=== PATIENT | female | born 1990 | race Caucasian/White ===

== ENCOUNTER 2017-01-26 09:59 | Emergency (ER) | payer MEDICAID ==
[~2017-01-26] VITALS: Ht 172.7 cm; Wt 80.0 kg
[2017-01-26 10:06] VITALS: BP 132/78; PULSE 100; RESP 20; TEMP 98.9; O2SAT 100
[2017-01-26 10:13] VITALS: BP 132/78; PULSE 74; RESP 18; O2SAT 98
[2017-01-26] MEDS ORDERED: LIDOCAINE 2%/EPINEPHrine 1:100,000 30ML MDV INFIL ONE (10:15)
[2017-01-26] MEDS ORDERED: IBUP800T23 PO (10:18)
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
== END 2017-01-26 11:19 | disposition home or self-care (01) ==
LOC: EDBD → NEPD 09:59
DX: S51.812A Laceration without foreign body of left forearm, initial encounter (principal); W25.XXXA Contact with sharp glass, initial encounter; Y92.009 Unspecified place in unspecified non-institutional (private) residence as the place of occurrence of the external cause; Z72.0 Tobacco use
CPT/HCPCS: 12002

== ENCOUNTER 2017-02-01 20:29 | Emergency (ER) | payer MEDICAID ==
[~2017-02-01 20:29] MED LIST: IBUP800T23 PO
[2017-02-01 20:30] VITALS: BP 118/76; PULSE 68; RESP 16; TEMP 98.8; O2SAT 98
--- NOTE | 2017-02-01 21:08 | PD ---
HPI Chief Complaint: Wound/Suture/Staple Re-Check Time Seen by Provider: 21:08 Travel History International Travel<30 days: No Contact w/Intl Traveler<30days: No Traveled to known affect area: No PFSH Past Medical History Medical History: Denies Significant Hx Anxiety: Yes Diabetes: No Diminished Hearing: No Tetanus Vaccination: < 5 Years ?: Not Past Surgical History Section: Yes Social History Alcohol Use: No Tobacco Use: Yes (1PPD) Substance Use: No Allergies-Medications (Allergen,Severity, Reaction): Coded Allergies: No Known Allergies (Unverified , 02/01/17) Reported Meds & Prescriptions Reported Meds & Active Scripts Active No Active Prescriptions or Reported Medications Data Data Last Documented VS Vital Signs Date Time Temp Pulse Resp B/P Pulse Ox O2 Delivery O2 Flow Rate FiO2 02/01/17 20:30 98.8 68 16 118/76 98 Room Air MDM Scripts No Active Prescriptions or Reported Meds Josephine Oliveros February 01, 2017 21:08
--- NOTE | 2017-02-01 21:13 | PD ---
HPI Chief Complaint: Wound/Suture/Staple Re-Check Time Seen by Provider: 21:13 Travel History International Travel<30 days: No Contact w/Intl Traveler<30days: No Traveled to known affect area: No History of Present Illness HPI 26 year-old female presents to emergency department requesting suture removal laceration left forearm sustained 7 days ago. Patient states she was instructed to keep the sutures in 7-10 days but she would like them out today if possible. Denies any fever or chills. Denies any pain. States that the area itches sometimes. Has no other symptoms to report. History Past Medical Histgory Medical History: Denies Significant Hx Tetanus Vaccination: < 5 Years Social History Alcohol Use: No Tobacco Use: Yes (1PPD) Allergies-Medications (Allergen,Severity, Reaction): Coded Allergies: No Known Allergies (Unverified , 02/01/17) Reported Meds & Prescriptions Reported Meds & Active Scripts Active No Active Prescriptions or Reported Medications Review of Systems Except as stated in HPI: all other systems reviewed are Neg Physical Exam Narrative GENERAL: Well-nourished, well-developed female patient ambulatory no acute distress SKIN: Focused skin assessment warm/dry. 6 cm laceration on the anterior aspect of the left wrist. Sutures are intact. No erythema or edema. No drainage. HEAD: Normocephalic. EYES: No scleral icterus. No injection or drainage. NECK: Supple, trachea midline. No JVD or lymphadenopathy. CARDIOVASCULAR: Regular rate and rhythm without murmurs, gallops, or rubs. RESPIRATORY: Breath sounds equal bilaterally. No accessory muscle use. GASTROINTESTINAL: Abdomen soft, non-tender, nondistended. MUSCULOSKELETAL: No cyanosis, or edema. 5 Plus vessel slagman strength equal bilateral upper extremities. Distal pulses are palpable. Sensation intact distal extremities. BACK: Nontender without obvious deformity. No CVA tenderness. Data Data Last Documented VS Vital Signs Date Time Temp Pulse Resp B/P Pulse Ox O2 Delivery O2 Flow Rate FiO2 02/01/17 20:30 98.8 68 16 118/76 98 Room Air MDM Medical Screen Exam Complete: Yes Emergency Medical Condition: No Differential Diagnosis Left forearm laceration, request for suture removal Narrative Course 26 year-old female presents to the emergency department for suture removal. Patient appears without distress. I did remove 2 sutures however the wound began to dehisce. Steri-Strips are placed over this area and I encouraged the patient to return in 3-5 days at which time sutures can be removed. She agrees with this plan of care. At this time there are no urgent or emergent needs medical intervention identified. A medical screening exam was performed: At the time of evaluation the presenting medical condition was determined not to be of an emergent nature. The patient was given the option of receiving additional care, but declined. Patient was given options for additional community resources from which to obtain care. The Patient Has Been advised to seek medical attention for their presenting complaint. The patient has been advised to return to the ER at any time if an emergent condition develops. Primary Impression: Laceration of forearm Qualified Code: S51.812D - Laceration of forearm, left, subsequent encounter Scripts No Active Prescriptions or Reported Meds Condition: Josephine Galan February 01, 2017 21:13
== END 2017-02-01 21:31 | disposition left against medical advice (07) ==
LOC: NEPK 20:29
DX: S51.812D Laceration without foreign body of left forearm, subsequent encounter (principal); X58.XXXD Exposure to other specified factors, subsequent encounter; Z48.02 Encounter for removal of sutures
CPT/HCPCS: 99281

== ENCOUNTER 2017-02-04 14:28 | Emergency (ER) | payer MEDICAID ==
[~2017-02-04] VITALS: Ht 167.6 cm; Wt 80.0 kg
[2017-02-04 14:29] VITALS: BP 131/87; PULSE 74; RESP 18; TEMP 99; O2SAT 95
--- NOTE | 2017-02-04 14:39 | PD ---
Physical Exam Date Seen by Provider: February 04, 2017 Time Seen by Provider: 14:38 Narrative 26 year old female presents to the emergency department for suture removal to her left forearm. No complaints. Vital signs reviewed. Patient awaiting bed placement. Data Data Last Documented VS Vital Signs Date Time Temp Pulse Resp B/P Pulse Ox O2 Delivery O2 Flow Rate FiO2 02/04/17 14:29 99.0 74 18 131/87 95 MDM Supervised Visit with SIDNEY: No Scripts No Active Prescriptions or Reported Meds Shannan Chavis February 04, 2017 14:39
--- NOTE | 2017-02-04 14:57 | PD ---
HPI Chief Complaint: Wound/Suture/Staple Re-Check Time Seen by Provider: 14:55 Travel History International Travel<30 days: No Contact w/Intl Traveler<30days: No Traveled to known affect area: No History of Present Illness HPI 26-year-old female presents to the emergency department requesting suture removal from a laceration to her left forearm. Sutures been in place for 10 days now. She states that she came in 2 days ago and they attempted to remove the sutures and told her to come back because it wasn't ready. Denies paresthesias, loss of sensation, decreased range of motion, decreased strength to the affected extremity. Denies fever, vomiting. Has no other medical. No known allergies. No other modifying factors or associated signs and symptoms. PFSH Past Medical History Anxiety: Yes Diabetes: No Diminished Hearing: No Past Surgical History Section: Yes Social History Alcohol Use: No Tobacco Use: Yes (1PPD) Substance Use: No Allergies-Medications (Allergen,Severity, Reaction): Coded Allergies: No Known Allergies (Unverified , 02/01/17) Reported Meds & Prescriptions Reported Meds & Active Scripts Active No Active Prescriptions or Reported Medications Review of Systems Except as stated in HPI: all other systems reviewed are Neg Physical Exam Narrative GENERAL: Well-nourished, well-developed female patient, in no acute distress SKIN: Warm and dry. Laceration to left forearm that is well approximated with sutures intact; without erythema, edema, drainage. Left upper extremity supple and non-tense with 2+ radial pulses and sensory intact without erythema or edema. HEAD: Atraumatic. Normocephalic. EYES: Pupils equal and round. No scleral icterus. No injection or drainage. ENT: Mucosa pink and moist. Airway patent. NECK: Trachea midline. CARDIOVASCULAR: Regular rate. RESPIRATORY: No accessory muscle use. GASTROINTESTINAL: Obese. MUSCULOSKELETAL: No obvious deformities. No clubbing. No cyanosis. No edema. NEUROLOGICAL: Awake and alert. Oriented 3. No obvious cranial nerve deficits. Motor grossly within normal limits. Normal speech. PSYCHIATRIC: Appropriate mood and affect; insight and judgment normal. Data Data Last Documented VS Vital Signs Date Time Temp Pulse Resp B/P Pulse Ox O2 Delivery O2 Flow Rate FiO2 02/04/17 14:29 99.0 74 18 131/87 95 MDM Medical Decision Making Medical Screen Exam Complete: Yes Emergency Medical Condition: Yes Medical Record Reviewed: Yes Differential Diagnosis Suture removal, wound recheck, medical clearance Narrative Course 26-year-old female presents for suture removal. The wound is approximately 2 sutures intact without signs of infection. One suture was removed and the wound slightly opened; I did recommend for the patient to come back in a few days but she asked for the sutures to be removed and Steri-Strips to be applied. Sutures removed and Steri-Strips applied. Patient tolerated well. Patient verbalizes understanding and agreement with treatment plan. Patient is medically cleared and stable for discharge. Discussed reasons to return to the emergency department. Instructed patient to follow up with primary care provider. Patient agrees with treatment plan. The patients vital signs are stable and the patient is stable for outpatient follow-up and treatment. Patient discharged home, stable and in no acute distress. Diagnosis Primary Impression: Encounter for removal of sutures Referrals: Primary Care Physician Patient Instructions: General Instructions, Stitches Removal (ED) Additional Instructions: Ibuprofen or Tylenol as directed and as needed for pain and inflammation Follow-up with primary care provider Med/Other Pt SpecificInfo: No Change to Meds, No Meds Exist/No RX given Scripts No Active Prescriptions or Reported Meds Disposition: 01 DISCHARGE HOME Condition: Stable Nikole Foster February 04, 2017 14:57
== END 2017-02-04 15:08 | disposition home or self-care (01) ==
LOC: NEPK 14:28
DX: S51.812D Laceration without foreign body of left forearm, subsequent encounter (principal); X58.XXXD Exposure to other specified factors, subsequent encounter; Z48.02 Encounter for removal of sutures
CPT/HCPCS: 99281